=== PATIENT | female | born 1970 ===

== ENCOUNTER → 2017-03-24 | Outpatient (CLI) | payer BC | END | disposition home or self-care (01) | LOC: C.LABSPEC 12:54 | PROVIDERS: ATTEND Family Medicine | DX: R35.0 Frequency of micturition (principal); R39.11 Hesitancy of micturition ==

== ENCOUNTER → 2018-02-03 | Outpatient (CLI) | payer BC | END | disposition home or self-care (01) | LOC: C.LABSPEC 12:54 | PROVIDERS: ATTEND Family Medicine | DX: R35.0 Frequency of micturition (principal); R39.11 Hesitancy of micturition ==